=== PATIENT | female | born 1980 | race Two or more races ===

== ENCOUNTER 2024-09-15 10:36 | Emergency (ER) | payer MEDICAID, SELFPAY ==
[2024-09-15 11:30] VITALS: BP 153/86; PULSE 76; RESP 18; TEMP 37.2; O2SAT 99; BMI 32.5
--- NOTE | 2024-09-15 11:33 | EKG_ITS ---
[facility] Test Date: 2024-09-15 Pat Name: KASANDRA MORALEZ Department: Room: - Gender: Female Manager Outreach: : 1980 Requested By: Ezequiel Dimas (GUEVARA) Order Number: [id number] Reading MD: Ezequiel Dimas (SHEARING SHED HAND) Measurements Intervals [place] Rate: 72 P: 54 [place]: 162 QRS: 74 QRSD: 93 T: 22 QT: 353 QTc: 389 Interpretive Statements SINUS RHYTHM ANTEROSEPTAL MYOCARDIAL INFARCTION , PROBABLY RECENT [40+ ms Q WAVE IN V1-V4] ACUTE [place] Compared to ECG 12/09/2019 17:02:56 Myocardial infarct finding now present /store/S0/[id number].pdf
--- NOTE | 2024-09-15 11:33 | XR_ITS ---
Examination: CT brain head without contrast. 2-D sagittal coronal reconstructions Date and time of exam:September 25, 2024 1151 hours INDICATIONS: Headaches syncopal episodes dizziness right-sided facial numbness today COMPARISON: 03/25/2023 CTDI: vol (mGy):50.9 DLP: (mGycm):989 Technique: Multiple CT axial sections of the brain have been obtained, 5 mm slice thickness. Contrast has not been administered. 2-D sagittal, coronal reconstructions have been obtained Low dose protocols were performed. One or more of the following dose reduction techniques were used; automated exposure control, adjustment of the mA and/or KV according to patient size, use of iterative reconstruction technique. Findings: No significant ventricular enlargement. Intra-axial or extra-axial hemorrhage density is not seen. No mass effect or midline shift Basal cisterns are not remarkable. Fourth ventricle is midline. Cranial vault intact. Significant chronic pansinusitis Impression: Negative for acute hemorrhage, mass effect or midline shift If symptoms persist, consider brain MRI follow-up, stroke protocol
[2024-09-15 11:53] LABS: Collection Type, Urine Clean Catch
[2024-09-15 12:01] LABS: Bilirubin,Urine Negative (Negative); Blood,Urine Negative (Negative); Clarity,Urine Clear (Clear/Hazy); Color,Urine Lt-Yellow (Lt Yel-Yel); Glucose, Urine Negative (Negative); Ketones,Urine Negative (Negative); Leukocyte Esterase,Urine Negative (Negative); Nitrite,Urine Negative (Negative); PH,Urine 7.5 (5.0-7.0); Protein,Urine Negative (Neg - Trace); RBC,Urine 2 /hpf (0-3); Specific Gravity,Urine 1.022 (1.001-1.035); Squamous Epithelial Cell,Urine 3 /hpf (0-5); WBC,Urine 1 /hpf (0-5)
[2024-09-15 12:07] LABS: HCG Qualitative,Urine Negative
[2024-09-15 12:14] VITALS: PULSE 70
[2024-09-15 12:36] LABS: Basophils % (Auto) 1 % (0-2.5); Eosinophils # (Auto) 0.3 Thou/mm3 (0.0-0.5); Eosinophils % (Auto) 3 % (0-10); Hematocrit 32.9 % (36.0-46.0); Hemoglobin 10.7 g/dL (12.0-16.0); Immature Granulocytes % (Auto) 0 % (0-0); Immature Granulocytes Auto 0.03 Thou/mm3 (0.00-0.00); Lymphocytes # (Auto) 2.6 Thou/mm3 (1.0-4.8); Lymphocytes % (Auto) 33 % (10-50); Mean Corpuscular HGB Conc 32.5 g/dl (31.0-37.0); Mean Corpuscular Hemoglobin 25.3 pg (25.0-35.0); Mean Corpuscular Volume 78 fL (80-100); Monocytes # (Auto) 0.4 Thou/mm3 (0.0-0.8); Monocytes % (Auto) 5 % (0-12); Neutrophils # (Auto) 4.5 Thou/mm3 (1.8-7.7); Neutrophils % (Auto) 58 % (37-80); Nucleated Red Blood Cell % 0 /100 WBC (0); Platelet Count 269 Thou/mm3 (140-440); RDW Standard Deviation 48.5 fL (36.4-46.3); Red Blood Count 4.23 Miln/mm3 (4.00-5.20); White Blood Count 7.8 Thou/mm3 (3.6-11.0)
--- NOTE | 2024-09-15 12:40 | EDNOTE_ITS ---
<Statement entered by Kim Durham MD - 09/16/24 16:20> As co-signing physician, I was present and available for consult prn. I concur with the plan and care as documented by the midlevel provider. ED Dizzyness RME/HPI General Chief Complaint: Neuro Symptoms/Deficit Stated Complaint: DIZZY, JHA, LIGHT HEADED, NUMBNESS TO R FACE YEST. Time Seen by Provider: 09/15/24 12:33 Arrival date/time: 09/15/24 10:36 RME / HPI RME / HPI Narrative: 44-year-old female patient with significant history of TIA in the past, came in for evaluation regarding dizziness. Onset of symptoms since yesterday more than 24 hours ago, as sudden onset of dizziness, with vertigo, lightheadedness, headache, and numbness to the right side of the face. Severity of symptoms mild. Patient denies any slurring of speech denies any upper or lower extremity weakness. On my initial evaluation the only complaint right now is dizziness and mild vertigo. Described as everything spinning. No medication was taken prior to arrival no fever no head trauma no other injuries noted. Related Data Home Medications ?Medication ?Instructions ?Recorded ?Confirmed albuterol sulfate 90 mcg/actuation 2 puff inhalation Q 6H PRN 11/19/19 12/18/21 aerosol inhaler Shortness Of Breath Previous Rx's ?Medication ?Instructions ?Recorded atorvastatin 40 mg tablet 40 mg PO QDAY #30 tabs 12/10 ibuprofen 800 mg tablet 800 mg PO TID PRN pain #30 t abs 12/18/21 acetaminophen 500 mg tablet 1,000 mg (2 x 500 mg) PO Q ID PRN 03/18/22 (Tylenol Extra Strength) fever or pain #30 tabs albuterol sulfate 90 mcg/actuation 2 puff inhalation Q ID #8.5 grams 03/18/22 aerosol inhaler azithromycin 250 mg tablet See Rx Instructions PO .COM PLEX #6 03/18/22 tabs methocarbamol 750 mg tablet 750 mg PO Q8H spasm #24 ta bs 06/06/22 ciprofloxacin HCl 500 mg tablet 500 mg PO BID #14 tabs 01/18/23 (Cipro) meclizine 25 mg tablet 25 mg PO BID PRN dizziness # 20 tabs 09/15/24 Allergies Allergy/AdvReac Type Severity Reaction Status Date / Time No Known Allergies Allergy Verified 03/18/22 18:09 Review of Systems Review of Systems Narrative Review of Systems: Review of system reviewed and within normal limits except mentioned in HPI ED Exam Narrative Physical exam: VITAL SIGNS: Reviewed. GENERAL APPEARANCE: Alert and interactive, follows commands, no acute distress, HEAD AND FACE: Non-traumatic. ENT: PERRL, pink conjunctivitis, eyelid no trauma, Mucous membrane moist. NECK: Supple, nontender, no nuchal rigidity. CHEST: No tenderness, no crepitus, no paradoxical movement, no retractions. LUNGS: Clear, well ventilated, symmetric, no rales, no wheezing, no ronchi, no stridor, good breath sounds bilaterally. HEART: Regular rate, regular rhythm, no murmur, no gallops. ABDOMEN: Soft, positive bowel sounds, nondistended, no guarding, nontender, no rebound, no masses, RECTAL: Deferred. GENITAL: Deferred. NEUROLOGICAL: Gross motor function intact sensory function intact, Appropriate for age. MUSCULOSKELETAL: low back nontender, full range of motion. EXTREMITIES: Nontender, full range of motion. SKIN: Color pink, dry, no rash, no lacerations, no abrasions, no contusions. LYMPHATICS: Deferred. Course Quality Measures none Orders Category Date Time Status Diversified Crops Farmer NOW Care 09/15/24 11:33 Active EKG (ED ONLY) *Do not use* NOW Care 09/15/24 11:[address] head/brain wo con Stat Exams 09/15/24 11:33 Completed EKG (ED Only) Stat Exams 09/15/24 11:33 Draft B-Type Natriuretic Peptide Stat Lab 09/15/24 12:19 Completed CBC Stat Lab 09/15/24 12:19 Completed Comprehensive Metabolic Panel Stat Lab 09/15/24 12:19 Completed Drug Screen,Urine Stat Lab 09/15/24 11:40 Completed HCG Qualitative,Urine Stat Lab 09/15/24 11:40 Completed Magnesium Stat Lab 09/15/24 12:19 Completed Partial Thromboplastin Time Stat Lab 09/15/24 12:19 Completed Prothrombin Time with INR Stat Lab 09/15/24 12:19 Completed Troponin I Stat Lab 09/15/24 12:19 Completed Urinalysis Stat Lab 09/15/24 11:40 Completed Meclizine HCl [Antivert] Med 09/15/24 12:40 Discontinued 50 mg PO X1 ONE Vital Signs Vital signs: Vital Signs Temperature 98.9 F 09/15/24 11:30 Pulse Rate 76 09/15/24 11:30 Respiratory Rate 18 09/15/24 11:30 Blood Pressure 153/86 H 09/15/24 11:30 Pulse Oximetry (%) 99 09/15/24 11:30 Oxygen Delivery Method Room Air 09/15/24 11:30 Dizziness [facility] Narrative [facility] Narrative:: 44-year-old female patient with significant history of TIA in the past, came in for evaluation regarding dizziness. Onset of symptoms since yesterday more than 24 hours ago, as sudden onset of dizziness, with vertigo, lightheadedness, headache, and numbness to the right side of the face. Severity of symptoms mild. Patient denies any slurring of speech denies any upper or lower extremity weakness. On my initial evaluation the only complaint right now is dizziness and mild vertigo. Described as everything spinning. No medication was taken prior to arrival no fever no head trauma no other injuries noted. EKG as interpreted by me showed sinus rhythm, ventricular rate of 1 6 2 bpm, no ST segment elevation depression noted. Except for Q waves 1 V1 V2 and V3 CT scan of the head came back unremarkable. Patient received meclizine in the emergency room. Patient was noted to be ambulatory with no recurrence of dizziness or vertigo. Patient is symptom-free prior to discharge. Patient appears nontoxic and hemodynamically stable. Patient discharged home and instructed to follow-up with primary care provider in 24 to 48 hours. Instructed to return to the emergency department immediately if worsening of symptoms Patient data External records reviewed:: None Clinical information provided by:: patient Social determinants that could affect healthcare access:: none Patient has the following chronic illnesses:: History of TIA How is presenting disease/condition affected by chronic disease/condition?: exacerbated by Evaluation data The following diagnostics were reviewed and interpreted by me:: lab results and radiology exam(s) Lab and/or radiology exams considered but not ordered:: None Interpretation Summary: See results in MDM Medications / Prescriptions Medications or Prescriptions considered but not ordered:: None Medication administrations:: Medication Administration History Discontinued Medications Meclizine HCl (Meclizine Hcl 25 Mg Tablet) 50 mg PO X1 ONE Stop: 09/15/24 12:41 Last Admin: 09/15/24 12:51 Dose: 50 mg Documented By: TONY Meclizine Consultations Consultation(s) initiated? (list below): No Diagnosis Dizziness Differential Diagnosis: benign paroxysmal positional vertigo and cerebrovascular accident Most likely diagnosis given after review of the tests above:: Dizziness Admission Indicated Admission indicated?: not indicated Admission Request Was there a request for admission?: No Disposition Plan Disposition Plan: Discharge Discharge Attestation Discharge Attestation: The patient was given an opportunity to ask questions and understood the discharge instructions. Discharge instructions specifically effects, indications for sooner follow up or return to the emergency department, and the expected course of current diagnosis. Patient condition: Stable Discharge Plan Plan Patient Disposition: HOME (Self Care) Disposition Comment: Stable Prescriptions/Referrals Prescriptions/Med Rec: New meclizine 25 mg tablet 25 mg PO BID PRN (Reason: dizziness) Qty: 20 0RF No Action albuterol sulfate 90 mcg/actuation Hfa Aerosol Inhaler 2 puff INHALATION Q6H PRN (Reason: Shortness Of Breath) atorvastatin 40 mg tablet 40 mg PO QDAY Qty: 30 0RF ibuprofen 800 mg tablet 800 mg PO TID PRN (Reason: pain) Qty: 30 0RF methocarbamol 750 mg tablet 750 mg PO Q8H Qty: 24 0RF ciprofloxacin HCl [Cipro] 500 mg tablet 500 mg PO BID Qty: 14 0RF albuterol sulfate 90 mcg/actuation HFA aerosol inhaler 2 puff inhalation QID Qty: 8.5 0RF azithromycin 250 mg tablet See Rx Instructions .ROUTE .COMPLEX Qty: 6 0RF Rx Instructions: For 250 mg dose pack: take 500 mg today (day 1), then 250 mg for 4 days (days 2-5) acetaminophen [Tylenol Extra Strength] 500 mg tablet 1,000 mg PO QID PRN (Reason: fever or pain) Qty: 30 0RF Problem List Clinical Impression: Dizziness Patient/Caregiver Discharge Instructions Discharge Activity: activity as tolerated Education Materials: ED Dizziness, Uncertain Cause Additional Instructions: Thank you for the opportunity for serving you today. You are stable for discharged . You are advised to: Follow-up with your PCP in 1 to 2 days Return to ED for worsening of symptoms Increase oral fluids Take medication as prescribed Print Language: Turkish Stand Alone Forms: Chandrika Award Info., Patient Portal Info Letter PA/PATRICIA Supervising Physician PA/DIAMOND POLISHER Supervising Physician: MD Ruben
[2024-09-15] MEDS: MECLIZINE HCL 25 MG TABLET 50 MG PO (12:51)
[2024-09-15 12:54] LABS: B-Type Natriuretic Peptide 44 pg/mL (0-100)
[2024-09-15 12:57] LABS: Alanine Aminotransferase 12 U/L (10-49); Albumin/Globulin Ratio 1.4 (1.2-2.2); Alkaline Phosphatase 75 U/L (46-116); Anion Gap 5 (7-16); Aspartate Amino Transferase 15 U/L (0-34); BUN/Creatinine Ratio 14 Ratio (12-20); Bilirubin,Total 0.2 mg/dL (0.3-1.2); Blood Urea Nitrogen 11 mg/dL (9-23); Calcium 8.9 mg/dL (8.3-10.6); Calcium (Corrected) 8.9 mg/dL (8.5-10.1); Carbon Dioxide 24.3 mMol/L (20.0-31.0); Chloride 108 mMol/L (98-107); Creatinine (Component) 0.8 mg/dL (0.6-1.3); Estimated Creatinine Clearance 87.4 mL/min (>60); Globulin 2.8 gm/dL (2.3-3.5); Glucose 116 mg/dL (74-106); Magnesium 1.9 mg/dL (1.6-2.6); Osmolality,Calculated 274 (275-295); Potassium 4.2 mMol/L (3.4-5.1); Sodium 137 mMol/L (136-145); Total Protein 6.8 gm/dL (5.7-8.2); Troponin I < 0.020 ng/mL (0.0-0.045); eGFR > 60 See Note
[2024-09-15 13:17] LABS: Partial Thromboplastin Time 25.9 Seconds (22.0-36.0); Prothrombin Time 10.5 Seconds (9.0-12.2)
[2024-09-15 14:03] LABS: Amphetamine/Methamp Scrn,U Negative (Negative); Barbiturate Screen,Urine Negative (Negative); Benzodiazepines Screen,Urine Negative (Negative); Benzoylecgonine Screen, Ur Negative (Negative); Fentanyl Screen,Urine Negative (Negative); Opiate Screen,Urine Negative (Negative); THC Screen,Urine Negative (Negative)
[2024-09-15 14:05] VITALS: BP 135/78; PULSE 69; RESP 20; TEMP 36.8; O2SAT 100
== END 2024-09-15 14:38 | disposition home or self-care (01) ==
LOC: SERX 14:41
PROVIDERS: Nurse Practitioner Primary Care; Emergency Provider Emergency Medicine; PCP Physician Assistant
DX: R42 Dizziness and giddiness (principal); R51.9 Headache, unspecified; R20.0 Anesthesia of skin
CPT/HCPCS: 36415; 70450; 80053; 80307; 81001; 81025; 83735; 83880; 84484; 85025; 85610; 85730; 93005; 99284; A9270

== ENCOUNTER → 2025-01-23 | Outpatient (CLI) | payer MEDICAID, SELFPAY ==
--- NOTE | 2025-01-23 10:30 | XR_ITS ---
Examination: Pelvic ultrasound, transabdominal, complete Technique: Transabdominal ultrasound of the pelvis performed using grayscale imaging Date and time of exam: January 23, 2025 1056 hours INDICATIONS: Abdominal distention beginning 3 years ago FINDINGS: Uterus 14.5 cm endometrial stripe 1.5 cm No uterine mass or intrauterine gestation Right ovary 3.8 cm arterial flow. Left ovary 0.2 cm arterial flow No fluid in the cul-de-sac IMPRESSION: Diffusely enlarged uterus but no discrete uterine masses
--- NOTE | 2025-01-23 10:30 | XR_ITS ---
Examination: Abdomen sonogram, complete Date and time of exam: January 23, 2025 1038 hours INDICATIONS: Abdominal bloating and distention 3 years Technique: Multiple real-time grayscale transabdominal sonographic images of the abdomen have been obtained. Findings: Normal gallbladder. Normal common bile duct 0.3 cm Pancreatic head 2.3 cm. Aorta not enlarged. Liver 15.6 cm mildly irregular contour. Normal hepatopedal portal venous flow. Patent IVC. Right kidney 10.5 cm renal cortex 1.5 cm. Left kidney 10.6 cm cortex 2.2 cm. Multiple left renal calculi, the largest upper pole 6 mm Mild to moderate renal parenchymal scar formation Spleen 10.7 cm IMPRESSION: Normal gallbladder. Suspect primary hepatocellular disease. Multiple nonobstructing left renal calculi.
== END | disposition home or self-care (01) ==
DX: N20.0 Calculus of kidney (principal); N85.2 Hypertrophy of uterus
CPT/HCPCS: 76700; 76856

== ENCOUNTER 2025-04-12 00:45 | Emergency (ER) | payer MEDICAID, SELFPAY ==
[2025-04-12 00:46] VITALS: BMI 31.2
[2025-04-12 01:07] VITALS: BP 179/93; BP 184/108; PULSE 59; RESP 20; TEMP 36.8; O2SAT 97
--- NOTE | 2025-04-12 01:16 | PD.EDABDPN ---
ED Abdominal Pain RME/HPI General Chief Complaint: Abdominal Pain Stated complaint: UPPER ABDOMINAL PAIN Time seen by provider: 04/12/25 01:15 Arrival date/time: 04/12/25 00:45 44F with history of CVA (no on anticoags) presents to ED with 1 day of epigastric pain and N/V. Limitations: no limitations Related Data Home Medications ?Medication ?Instructions ?Recorded ?Confirmed albuterol sulfate 90 mcg/actuation 2 puff inhalation Q6H PRN 11/19/19 12/18/21 aerosol inhaler Shortness Of Breath Previous Rx's ?Medication ?Instructions ?Recorded atorvastatin 40 mg tablet 40 mg PO QDAY #30 tabs 12/11/19 ibuprofen 800 mg tablet 800 mg PO TID PRN pain #30 tabs 12/18/21 acetaminophen 500 mg tablet 1,000 mg (2 x 500 mg) PO QID PRN 03/18/22 (Tylenol Extra Strength) fever or pain #30 tabs albuterol sulfate 90 mcg/actuation 2 puff inhalation QID #8.5 grams 03/18/22 aerosol inhaler azithromycin 250 mg tablet See Rx Instructions PO .COMPLEX #6 03/18/22 tabs methocarbamol 750 mg tablet 750 mg PO Q8H spasm #24 tabs 06/06/22 ciprofloxacin HCl 500 mg tablet 500 mg PO BID #14 tabs 01/18/23 (Cipro) meclizine 25 mg tablet 25 mg PO BID PRN dizziness #20 tabs 09/15/24 Allergies Allergy/AdvReac Type Severity Reaction Status Date / Time No Known Allergies Allergy Verified 02/28/25 19:00 Review of Systems Review of Systems Systems Reviewed: All systems reviewed, normal except as documented Gastrointestinal Gastrointestinal: Reports as per HPI, Reports abdominal pain, Reports nausea and Reports vomiting Past Medical History Past Medical History NEUROLOGIC: Positive Neurological Disorders, Cerebrovascular Accident and Transient Ischemic Attacks (TIA) CARDIAC: Negative Congestive Heart Failure RESPIRATORY: Positive Asthma; Negative Chronic Obstructive Pulmonary Disease (COPD) GENITOURINARY: Negative Renal Disease ENT: Positive Glaucoma ENDOCRINE: Negative Endocrine Disorders, Diabetes Mellitus Type 1 or Diabetes Mellitus Type 2 OTHER HISTORY: Negative Falls, Blood Transfusions or Anesthesia Reactions Surgical History SURGICAL: Positive Cardiac Surgery; Negative Ear Surgery Social History SMOKING STATUS: Never smoker SUBSTANCE USE: does not use ED Exam General Limitations: Present no limitations General appearance: Present alert and in no apparent distress Head Head exam: Present atraumatic Neck Neck exam: Present normal inspection, full ROM and trachea midline Chest Chest inspection: Present normal inspection and symmetric chest wall rise Abdominal Exam Abdominal exam: Present soft; Absent tenderness Neurological Exam Neurological exam: Present alert and oriented X3 Psychiatric Psychiatric exam: Present normal affect and normal mood Skin Skin exam: Present warm, dry, intact and normal color Course Quality Measures none Orders Category Date Time Status Famotidine [Pepcid] Med 04/12/25 01:15 Discontinued 40 mg PO X1 ONE Famotidine [Pepcid] Med 04/12/25 01:34 Discontinued 40 mg PO X1 ONE Ondansetron Odt [Zofran Odt] Med 04/12/25 01:15 Discontinued 4 mg PO X1 ONE Ondansetron Odt [Zofran Odt] Med 04/12/25 01:35 Discontinued 4 mg PO X1 ONE Vital Signs Vital signs: Vital Signs Temperature 98.2 F 04/12/25 01:07 Pulse Rate 59 L 04/12/25 01:07 Respiratory Rate 20 04/12/25 01:07 Blood Pressure 179/93 H 04/12/25 01:07 Pulse Oximetry (%) 97 04/12/25 01:07 Oxygen Delivery Method Room Air 04/12/25 01:07 O2 at 97% on RA and WNLs Abdominal Pain MDM MDM Narrative MDM Narrative:: 44F with history of CVA (no on anticoags) presents to ED with 1 day of epigastric pain and N/V. Physical exam reveals no ab tenderness. Patient is afebrile, calm, and alert. Patient eloped. Patient data External records reviewed:: [facility] previous records Clinical information provided by:: patient Social determinants that could affect healthcare access:: none Patient has the following chronic illnesses:: CVA How is presenting disease/condition affected by chronic disease/condition?: uneffected by Evaluation data The following diagnostics were reviewed and interpreted by me:: other (specify) (none) Lab and/or radiology exams considered but not ordered:: not ordered Interpretation Summary: n/a Medications / Prescriptions Medications or Prescriptions considered but not ordered:: ordered Medication administrations:: Medication Administration History Discontinued Medications Famotidine (Famotidine 20 Mg Tablet) 40 mg PO X1 ONE Stop: 04/12/25 01:16 Last Admin: 04/12/25 01:37 Dose: 40 mg Documented By: RICHARD Famotidine (Famotidine 20 Mg Tablet) 40 mg PO X1 ONE Stop: 04/12/25 01:35 Last Admin: 04/12/25 01:37 Dose: Not Given Documented By: RICHARD Non-Admin Reason: Duplicate Medication on eMAR Ondansetron HCl (Ondansetron Odt 4 Mg Tabrap) 4 mg PO X1 ONE; Protocol Stop: 04/12/25 01:16 Last Admin: 04/12/25 01:36 Dose: 4 mg Documented By: RICHARD Ondansetron HCl (Ondansetron Odt 4 Mg Tabrap) 4 mg PO X1 ONE; Protocol Stop: 04/12/25 01:36 Last Admin: 04/12/25 01:38 Dose: Not Given Documented By: RICHARD Non-Admin Reason: Duplicate Medication on eMAR above Consultations Consultation(s) initiated? (list below): No Diagnosis Differential diagnosis abdominal pain: abdominal pain, acute appendicitis, calculus of kidney, constipation, diverticulitis, endometriosis, gastroenteritis, pancreatitis, small bowel obstruction and other (gastritis) Most likely diagnosis given after review of the tests above:: gastritis Admission Indicated Admission indicated?: not indicated Admission Request Was there a request for admission?: No Disposition Plan Disposition Plan: other (specify) (eloped) Discharge Plan Plan Patient Disposition: Elopement Prescriptions/Referrals Prescriptions/Med Rec: No Action albuterol sulfate 90 mcg/actuation Hfa Aerosol Inhaler 2 puff INHALATION Q6H PRN (Reason: Shortness Of Breath) atorvastatin 40 mg tablet 40 mg PO QDAY Qty: 30 0RF ibuprofen 800 mg tablet 800 mg PO TID PRN (Reason: pain) Qty: 30 0RF methocarbamol 750 mg tablet 750 mg PO Q8H Qty: 24 0RF ciprofloxacin HCl [Cipro] 500 mg tablet 500 mg PO BID Qty: 14 0RF albuterol sulfate 90 mcg/actuation HFA aerosol inhaler 2 puff inhalation QID Qty: 8.5 0RF azithromycin 250 mg tablet See Rx Instructions .ROUTE .COMPLEX Qty: 6 0RF Rx Instructions: For 250 mg dose pack: take 500 mg today (day 1), then 250 mg for 4 days (days 2-5) acetaminophen [Tylenol Extra Strength] 500 mg tablet 1,000 mg PO QID PRN (Reason: fever or pain) Qty: 30 0RF meclizine 25 mg tablet 25 mg PO BID PRN (Reason: dizziness) Qty: 20 0RF Referrals: Celia Culp, COMPUTER SYSTEM VALIDATION SPECIALIST [Primary Care Provider] - In 1 week Problem List Clinical Impression: Gastritis Patient/Caregiver Discharge Instructions Education Materials: ED Gastritis (Adult) Additional Instructions: Please follow-up with PCP within 24-48 hours and return immediately if symptoms worsen. Print Language: Jordanian PA/ZIPPER TRIMMER HAND Supervising Physician PA/ZIPPER TRIMMER HAND Supervising Physician: Dr. Camargo
[2025-04-12] MEDS: ONDANSETRON ODT 4 MG TABRAP PO (01:36)
[2025-04-12] MEDS: FAMOTIDINE 20 MG TABLET 40 MG PO (01:37)
== END 2025-04-12 03:16 | disposition left against medical advice (07) ==
PROVIDERS: Emergency Provider Emergency Medicine; PCP Nurse Practitioner Pediatrics
DX: K29.70 Gastritis, unspecified, without bleeding (principal)
CPT/HCPCS: 99283; Q0162; A9270